=== PATIENT | female | born 1975 ===

== ENCOUNTER 2021-01-03 16:08 | Outpatient (CLI) | payer OTHER | END 2021-01-03 16:20 | disposition home or self-care (01) | LOC: RAD 16:08 | PROVIDERS: ATTEND Physical Medicine & Rehabilitation | DX: M54.6 Pain in thoracic spine (principal); M54.59 Other low back pain ==

== ENCOUNTER 2021-01-24 10:52 | Outpatient (CLI) | payer OTHER | END 2021-01-24 11:08 | disposition home or self-care (01) | LOC: SONOGRAMA 10:52 | PROVIDERS: ATTEND Internal Medicine Endocrinology, Diabetes & Metabolism | DX: E04.1 Nontoxic single thyroid nodule (principal) ==